=== PATIENT | female | born 1995 | race Caucasian/White ===

== ENCOUNTER 2023-04-25 12:17 | Outpatient (CLI) | payer BC, SELFPAY | END 2023-04-25 12:18 | disposition home or self-care (01) | PROVIDERS: PCP Physician Assistant Medical; Visit Provider Physician Assistant Medical | DX: M25.561 Pain in right knee (principal); M25.562 Pain in left knee | CPT/HCPCS: 82306; 82607; 86039; 86200; 86431; 86812 ==

== ENCOUNTER 2023-11-08 15:47 | Outpatient (REF) | payer BC, SELFPAY | END 2023-11-08 15:48 | disposition home or self-care (01) | LOC: NFLDREF 15:47 | PROVIDERS: PCP Physician Assistant Medical; Referring Provider Physician Assistant Medical; Visit Provider Physician Assistant | DX: R10.9 Unspecified abdominal pain (principal); R11.0 Nausea; K52.9 Noninfective gastroenteritis and colitis, unspecified | CPT/HCPCS: 87086 ==

== ENCOUNTER 2024-12-09 15:34 | Outpatient (CLI) | payer OTHER, SELFPAY ==
[2024-12-09 23:12] LABS: Chlamydia DNA Amplified* NOT DETECTED (No Detected); GC DNA Amplified* NOT DETECTED (No Detected)
== END 2024-12-09 15:35 | disposition home or self-care (01) ==
PROVIDERS: PCP Physician Assistant Medical; Visit Provider Physician Assistant Medical
DX: Z12.4 Encounter for screening for malignant neoplasm of cervix (principal); Z11.3 Encounter for screening for infections with a predominantly sexual mode of transmission
CPT/HCPCS: 87491; 87591; 87624; 87625; 88141; 88142